=== PATIENT | female | born 1995 | race Two or more races ===

== ENCOUNTER 2017-01-15 07:32 | Emergency (ER) | payer MEDICAID ==
[2017-01-15 07:36] VITALS: BP 125/85; PULSE 95; RESP 16; TEMP 98.6; O2SAT 98
--- NOTE | 2017-01-15 07:37 | EDPHY ---
H & P Time Seen by Provider: 01/15/17 07:37 HPI/ROS: CHIEF COMPLAINT: Sore throat HISTORY OF PRESENT ILLNESS: Started 2 days ago, mild to moderate, associated with a "squeakier" voice, stuffy nose, stuffy ears, a little bit of a nonproductive cough. No fevers or chills. Worse with swallowing but able to tolerate oral fluids. REVIEW OF SYSTEMS: No headache, no foreign body sensation in throat, no choking or aspiration. PAST MEDICAL HISTORY: Negative Social history: [employer] student, recent exposure to strep General Appearance: Alert and conversant, cooperative. Normal tympanic membranes. Some pharyngeal erythema and a little bit of exudate but no trismus. No stridor or drooling. No intraoral ulcers. Mucous membranes are moist. No facial swelling. Some nasal congestion and turbinates edema. No cervical lymphadenopathy. Alert, ambulatory, no meningeal signs, no respiratory distress. Emergency Department course/MDM: Negative strep screen, dexamethasone discussed and consented. The floor the mouth is soft. Unlikely to represent deep space mouth or neck infection. Smoking Status: Never smoked Constitutional: Initial Vital Signs Temperature (C) 37 C 01/15/17 07:33 Heart Rate 95 01/15/17 07:33 Respiratory Rate 16 01/15/17 07:33 Blood Pressure 125/85 H 01/15/17 07:33 O2 Sat (%) 98 01/15/17 07:33 O2 Delivery Mode Room Air Allergies/Adverse Reactions: No Known Allergies Allergy (Verified 01/15/17 07:33) Home Medications: Medication Instructions Recorded NK [No Known Home Meds] 07/25/15 MDM/Departure - Depart Disposition: Home, Routine, Self-Care Clinical Impression: Acute pharyngitis Qualifiers: Pharyngitis/tonsillitis etiology: unspecified etiology Qualified Code(s): J02.9 - Acute pharyngitis, unspecified Condition: Good Instructions: Pharyngitis (ED) Additional Instructions: Strep screen negative. Stand Alone Forms: School Excuse Referrals: [facility] [Other] - As per Instructions Luis Low MD [Medical Doctor] - 2-3 days, if not improved (ENT referral if not improving)
[2017-01-15] MEDS ORDERED: DEXAMETHASONE 2 MG TAB PO ONE (08:01)
[2017-01-15] MEDS ORDERED: IBUPROFEN 600 MG TAB PO ONE (08:01)
[2017-01-15] MEDS ORDERED: DEXAMETHASONE 4 MG TAB ONE ×2 (08:07→08:08)
== END 2017-01-15 08:12 | disposition home or self-care (01) ==
DX: J02.9 Acute pharyngitis, unspecified (principal)

== ENCOUNTER 2017-08-06 07:19 | Emergency (ER) | payer MEDICAID ==
[2017-08-06 07:31] VITALS: RESP 18; TEMP 98.1
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
[2017-08-06 08:50] VITALS: BP 120/78; PULSE 68; O2SAT 98
== END 2017-08-06 08:50 | disposition home or self-care (01) ==
DX: S06.0X0A Concussion without loss of consciousness, initial encounter (principal); E11.9 Type 2 diabetes mellitus without complications; V18.4XXA Pedal cycle driver injured in noncollision transport accident in traffic accident, initial encounter; Y92.410 Unspecified street and highway as the place of occurrence of the external cause; Y99.8 Other external cause status; Y93.55 Activity, bike riding